=== PATIENT | male | born 1985 | race Caucasian/White ===

== ENCOUNTER 2023-07-09 09:46 | Outpatient (CLI) | payer MEDICAID, MEDICARE | END 2023-07-09 23:59 | disposition home or self-care (01) | LOC: RAD 09:46 | PROVIDERS: ATTEND Nurse Practitioner Psychiatric/Mental Health | DX: R00.1 Bradycardia, unspecified (principal); Z79.899 Other long term (current) drug therapy | CPT/HCPCS: 93005 ==